=== PATIENT | female | born 1990 | race Caucasian/White ===

== ENCOUNTER 2017-04-30 16:44 | Inpatient (IN) | payer MEDICAID ==
[2017-04-30] VITALS (11 sets, daily range): BP systolic 116–187; BP diastolic 61–95; PULSE 87–112; TEMP 98
[~2017-04-30] VITALS: Ht 177.8 cm; Wt 102.3 kg
[2017-04-30] MEDS ORDERED: PRENATAL1 TA7 PO (17:42)
[2017-04-30] MEDS ORDERED: PROBIOTIC FORMU1 CAP PO (17:43)
[2017-04-30 19:53] LABS: BASO % 0.3 % (0.0-2.0); EOS # 0.1 (0.0-0.7); EOS % 0.6 % (0-4.0); GRAN # 8.5 (1.4-6.5); GRAN % 72.4 % (42.2-75.2); HEMATOCRIT 42.2 % (37.0-47.0); HEMOGLOBIN 14.9 g/dl (12.5-16.0); LYMPH # 2.3 (1.2-3.4); LYMPH % 19.5 % (20.0-51.0); MEAN CELL VOLUME 91 fl (80.0-100.0); MEAN CORPUSCULAR HEMOGLOBIN 32 pg (27.0-31.0); MEAN CORPUSCULAR HGB CONC 35 g/dl (33.0-37.0); MEAN PLATELET VOLUME 10.7 fl (7.4-10.4); MONO # 0.7 (0.1-0.6); MONO % 6.2 % (1.7-9.3); PLATELET COUNT 191 K/mm3 (130-400); RED BLOOD COUNT 4.64 M/mm3 (4.10-5.30); REDCELL DISTRIBUTION WIDTH-CV 13.4 % (11.5-14.5); WHITE BLOOD COUNT 11.7 K/mm3 (4.8-10.8)
[2017-05-01] VITALS (12 sets, daily range): BP systolic 120–148; BP diastolic 66–87; PULSE 80–99; TEMP 97.7–98
[2017-05-02 07:16] VITALS: BP 125/86; PULSE 79; TEMP 97.8
[2017-05-02] MEDS ORDERED: PERCOCET 325 MG1 TA2 PO (08:30)
[2017-05-02] MEDS ORDERED: MOTRIN 800800 MG/TAB PO (08:30)
== END 2017-05-02 10:45 | disposition home or self-care (01) | DRG 774 ==
LOC: LDRO 16:44 → LDR 18:36 → OB 18:36 → LDRO 07-05 10:16
PROVIDERS: Obstetrics & Gynecology
PROC: 10E0XZZ Delivery of Products of Conception, External Approach (ICD-10-PCS; principal; 2017-04-30)
PROC: 0HQ9XZZ Repair Perineum Skin, External Approach (ICD-10-PCS; 2017-04-30)
DX: O98.312 Other infections with a predominantly sexual mode of transmission complicating pregnancy, second trimester (principal); A56.02 Chlamydial vulvovaginitis; O69.2XX0 Labor and delivery complicated by other cord entanglement, with compression, not applicable or unspecified; O70.0 First degree perineal laceration during delivery; Z3A.39 39 weeks gestation of pregnancy; Z37.0 Single live birth
CPT/HCPCS: J1200; J2590; J7120